=== PATIENT | female | born 1985 | race Two or more races ===

== ENCOUNTER 2021-04-18 13:58 | Emergency (ER) | payer OTHER ==
[~2021-04-18] VITALS: Ht 162.6 cm; Wt 100.0 kg
[2021-04-18] MEDS ORDERED: BACTDSB PO (14:34)
[2021-04-18] MEDS ORDERED: METF-960 PO (14:34)
[2021-04-18] MEDS ORDERED: LISI-892 PO (14:34)
[2021-04-18 14:59] VITALS: BP 133/81
[2021-04-18] MEDS ORDERED: SULFAMETHOX/TRIMETH DS 800-160 MG/TABLET PO ONE (15:45)
[2021-04-18] MEDS ORDERED: CEPHALEXIN MONOHYDRATE 500 MG CAPSULE PO ONE (15:45)
== END 2021-04-18 16:17 | disposition home or self-care (01) ==
LOC: EMS 14:05
DX: S71.102D Unspecified open wound, left thigh, subsequent encounter (principal); E11.9 Type 2 diabetes mellitus without complications; F17.210 Nicotine dependence, cigarettes, uncomplicated; Z48.00 Encounter for change or removal of nonsurgical wound dressing; Z79.84 Long term (current) use of oral hypoglycemic drugs; X58.XXXD Exposure to other specified factors, subsequent encounter
CPT/HCPCS: 99283